=== PATIENT | female | born 2000 | race Caucasian/White ===

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

== ENCOUNTER 2021-04-17 00:12 | Observation (INO) | payer OTHER, SELFPAY ==
[2021-04-17 00:40] VITALS: BP 115/61; PULSE 100; TEMP 36.6
[2021-04-17 01:00] VITALS: BP 107/65; PULSE 101; BMI 43.1
--- NOTE | 2021-04-17 01:00 | PC.NURSE ---
Pt states she has pain right upper quadrant of abdomen that extends to low abdomen since waking 06/17. Pt denies any nausea, vomiting and diarrhea. Denies fever. Pain is intermittent and pt is not having pain on arrival. Abdomen soft.
--- NOTE | 2021-04-17 01:00 | OBADM ---
This patient, Criss Wilson, admitted to the OB room OB Post 116 for observation. Patient/family oriented to hospital policies and general routines including ID bracelet, bed and alarms, visiting hours, pain management, procedures, bathroom and other care routines, personal items, smoking policy, room service/diet, and visiting hours. Patient/Family are encouraged to report perceived risks to care and to ask questions if they do not understand what they are told or what they should do.
[2021-04-17 02:00] VITALS: BP 99/57; PULSE 88
[2021-04-17 02:52] LABS: Basophils Percent Auto 0.2 % (0.2-1.2); Eosinophils Percent Auto 0.3 % (0-4.4); Hematocrit 33.3 % (37.0-47.0); Hemoglobin 10.6 g/dL (12.0-15.0); Immature Granulocyte Absolute 0.13 K/mm3 (0.00-0.031); Immature Granulocyte Percent A 1.1 % (0-0.5); Lymphocytes Absolute Auto 2.43 K/mm3 (0.9-3.2); Lymphocytes Percent Auto 20.6 % (18.3-44.2); Mean Corpuscular HGB Conc 31.8 g/dl (32-36); Mean Corpuscular Hemoglobin 26.2 pg (26-34); Mean Corpuscular Volume 82.4 fl (80-100); Mean Platelet Volume 10.7 fl (7.4-10.4); Monocytes Absolute Auto 0.7 K/mm3 (0.1-0.6); Monocytes Percent Auto 6.3 % (2.6-8.5); Neutrophils Absolute Auto 8.5 K/mm3 (1.3-6.7); Neutrophils Percent Auto 71.5 % (45.5-73.1); Platelet Count Result 309 k/mm3 (150-375); Red Blood Count 4.04 M/mm3 (4.2-5.4); Red Cell Distribution Width 12.8 % (11.5-14.5); White Blood Count 11.8 K/mm3 (4.5-10.0)
[2021-04-17 03:04] LABS: Amylase 67 U/L (30-110); Lipase 54 U/L (23-300)
[2021-04-17 03:05] LABS: Alanine Aminotransferase 18 U/L (4-35); Albumin Level 3.6 g/dL (3.5-5.1); Alkaline Phosphatase 137 U/L (38-126); Anion Gap 8 mmol/L (8-16); Aspartate Amino Transferase 21 U/L (14-36); Bilirubin,Total < 0.1 mg/dL (0.2-1.3); Blood Urea Nitrogen 7 mg/dL (7-17); Calcium 9.1 mg/dL (8.4-10.2); Carbon Dioxide 20 mmol/L (22-30); Chloride 107 mmol/L (98-107); Estimated Glomerular Filt Rate > 60; Glucose 116 mg/dL (65-105); Potassium 3.7 mmol/L (3.4-5.0); Sodium 135 mmol/L (137-145)
[2021-04-17 03:15] LABS: Add Urine Microscopic? YES; Appearance Urine Cloudy (Clear); Bacteria Urine 1+ /hpf; Bilirubin Urine Negative (Negative); Blood Urine Negative (Negative); Color Urine Yellow (Yellow); Glucose Urine UA Negative (Negative); Ketones Urine Negative (Negative); Leukocyte Esterase Ur Negative LEU/UL (Negative); Mucus Urine Rare /lpf; Nitrate Urine Negative (Negative); Protein Urine Negative (Negative); RBC Urine 0-2 /hpf (0-2); Specific Grav Ur 1.018 (1.001-1.035); Squamous Epithelial Cell Urine Many /hpf (Few); Urobilinogen Urine Negative mg/dL (<2.0); WBC Urine 0-3 /hpf
[2021-04-17 04:05] VITALS: BP 102/60; PULSE 91
--- NOTE | 2021-04-17 04:30 | PC.NURSE ---
Labs called to Elda Harris CNM Pt has AM appointment at office. Will continue to monitor and pt will see MD/Val[employer] in am if pt would like to stay until appointment time. Pt denies any complaints at this time.
--- NOTE | 2021-04-17 07:18 | PC.NURSE ---
Elda Tesfaye CNM advised of pt admission and assessment. Orders received.
[2021-04-17 07:20] VITALS: BP 96/61; PULSE 91; TEMP 36.7
--- NOTE | 2021-04-17 08:26 | PM.IMHP ---
H&P: HPI History of Present Illness Date/Time: 04/17/21 08:26 This patient is a 21-year-old 1 30 weeks gestation who presents for right sided flank pain. She had sharp, severe flank pain on the right side that radiated down to her hip. After short. Evaluation she states that the pain resolved. Her urine was normal. Her baby had reassuring heart tones. She denies any vaginal bleeding. She denies any contractions. She reports good movement. She denies any nausea, vomiting, fever, chills. She denies any chest pain or shortness of breath. Chief Complaint: flank pain Review of Systems Constitutional: Constitutional: Reports no additional constitutional complaints, Denies fatigue, Denies headache(s), Denies lethargy and Denies weakness Eyes: Eyes: Reports no additional eye complaints, Denies blurry vision and Denies photophobia ENT: Reports as per HPI, Denies headache(s) and Denies neck pain Cardiovascular: Cardiovascular: Denies chest pain, Denies diaphoresis, Denies leg edema, Denies palpitations and Denies dyspnea Respiratory: Respiratory: Denies hemoptysis, Denies dyspnea and Denies wheezing Gastrointestinal: Gastrointestinal: Denies abdominal pain, Denies melena, Denies bloating, Denies hematochezia, Denies nausea and Denies vomiting Genitourinary: Genitourinary: Reports no additional female genitourinary complaints Musculoskeletal: Musculoskeletal: Denies joint swelling, Denies neck pain, Denies numbness and Denies stiffness Neurologic: Denies Abnormal speech present, Denies confusion, Denies headache(s), Denies numbness and Denies weakness Psychiatric: Psychiatric: Denies anxiety, Denies confusion, Denies depression, Denies homicidal ideation and Denies suicidal ideation Endocrine: Endocrine: Denies fatigue and Denies palpitations Allergic/Immunologic: Allergic/Immunologic: Denies wheezing PMFSH Past Medical History Medical History (Updated 04/17/21 @ 08:28 by Becky James MD) No pertinent past medical history Surgical History Surgical History (Updated 02/16/20 @ 00:36 by John Corcoran MD) No pertinent past surgical history Social History Social History Gender identity (if verbalized by the patient): Female Meds Home Medications and Allergies Home Medications Medication Instructions Recorded Confirmed Type PNV cmb#95-ferrous fumarate-FA 1 tablet PO DAILY 04/17/21 04/17/21 History [] ferrous sulfate 325 mg PO DAILY 04/17/21 04/17/21 History Allergies Allergy/AdvReac Type Severity Reaction Status Date / Time No Known Allergies Allergy Mild Verified 02/16/20 00:15 Vital Signs Vital Signs - 24 hr 04/17/21 00:40 04/17/21 01:00 04/17/21 02:00 Temperature 97.9 F Pulse Rate 100 101 H 88 Blood Pressure 115/61 107/65 99/57 L 04/17/21 04:05 04/17/21 07:20 Temperature Pulse Rate 91 91 Blood Pressure 102/60 96/61 L Exam Const: General: healthy appearing, comfortable and no acute distress; No confusion Orientation/consciousness: No confusion Eyes: Direct Ophthalmoscopy: No photophobia Resp: Auscultation: clear to auscultation bilaterally, no rales, no rhonchi and no wheezes Cardio: Rate: regular rate Heart sounds: no click, no murmurs and no rubs GI: Inspection: non-distended GI Palp: No abdominal tenderness Auscultation: normal bowel sounds Neuro: General: No confusion Speech: No Abnormal speech present Extrem: General: normal to inspection, no pedal edema and no calf tenderness H&P: Results Labs Labs: Short CBC 04/17/21 Range/Units 02:16 WBC 11.8 H (4.5-10.0) K/mm3 Hgb 10.6 L D (12.0-15.0) g/dL Hct 33.3 L (37.0-47.0) % Plt Count 309 (150-375) k/mm3 [facility] 04/17/21 02:16 Sodium 135 L Potassium 3.7 Chloride 107 Carbon Dioxide 20 L BUN 7 Creatinine 0.50 L Glucose 116 H Calcium 9.1 Liver Function 04/17/21 Range/Units 02:16 Total Bilirubin < 0.1 L (0.2-1.3)
== END 2021-04-17 09:24 | disposition home or self-care (01) ==
PROVIDERS: Advanced Practice Midwife; Admitting Provider Obstetrics & Gynecology; PCP Physician Assistant; Visit Provider Obstetrics & Gynecology
DX: O26.893 Other specified pregnancy related conditions, third trimester (principal); R10.9 Unspecified abdominal pain; Z3A.30 30 weeks gestation of pregnancy
CPT/HCPCS: 36415; 80053; 81001; 82150; 83690; 85025; G0378; G0379

== ENCOUNTER → 2021-04-28 09:09 | Outpatient (CLI) | payer OTHER, SELFPAY ==
[2021-04-29 15:38] LABS: SARS-CoV-2 RNA PCR Positive
== END ==
PROVIDERS: PCP Physician Assistant; Visit Provider Obstetrics & Gynecology
DX: U07.1 COVID-19 (principal)
CPT/HCPCS: C9803; U0003; U0005

== ENCOUNTER 2021-05-24 23:33 | Observation (INO) | payer OTHER, SELFPAY ==
[2021-05-24 23:50] VITALS: BP 117/70; PULSE 102
[2021-05-24 23:56] VITALS: BMI 45.3
--- NOTE | 2021-05-24 23:56 | OBADM ---
This patient, Criss Wilson, admitted to the OB room OB Post 117 for observation. Patient/family oriented to hospital policies and general routines including ID bracelet, bed and alarms, visiting hours, pain management, procedures, bathroom and other care routines, personal items, smoking policy, room service/diet, and visiting hours. Patient/Family are encouraged to report perceived risks to care and to ask questions if they do not understand what they are told or what they should do.
[2021-05-25] VITALS (9 sets, daily range): BP systolic 82–130; BP diastolic 50–88; PULSE 95–110; TEMP 36.7
[2021-05-25] MEDS: ACETAMINOPHEN 500 MG TABLET 1000 MG PO (01:23)
[2021-05-25 01:38] LABS: Basophils Percent Auto 0.2 % (0.2-1.2); Eosinophils Absolute Auto 0.1 K/mm3 (0-0.3); Eosinophils Percent Auto 0.5 % (0-4.4); Hemoglobin 9.9 g/dL (12.0-15.0); Immature Granulocyte Absolute 0.07 K/mm3 (0.00-0.031); Immature Granulocyte Percent A 0.7 % (0-0.5); Lymphocytes Absolute Auto 2.68 K/mm3 (0.9-3.2); Lymphocytes Percent Auto 25.2 % (18.3-44.2); Mean Corpuscular HGB Conc 31.9 g/dl (32-36); Mean Corpuscular Hemoglobin 25.1 pg (26-34); Mean Corpuscular Volume 78.7 fl (80-100); Mean Platelet Volume 11.3 fl (7.4-10.4); Monocytes Absolute Auto 0.8 K/mm3 (0.1-0.6); Monocytes Percent Auto 7.6 % (2.6-8.5); Neutrophils Percent Auto 65.8 % (45.5-73.1); Platelet Count Result 283 k/mm3 (150-375); Red Blood Count 3.94 M/mm3 (4.2-5.4); Red Cell Distribution Width 13.9 % (11.5-14.5); White Blood Count 10.6 K/mm3 (4.5-10.0)
[2021-05-25 01:44] LABS: Add Urine Microscopic? YES; Appearance Urine Clear (Clear); Bacteria Urine Trace /hpf; Bilirubin Urine Negative (Negative); Blood Urine Negative (Negative); Color Urine Yellow (Yellow); Glucose Urine UA Negative (Negative); Ketones Urine Negative (Negative); Leukocyte Esterase Ur Trace LEU/UL (NEGATIVE); Mucus Urine Rare /lpf; Nitrate Urine Negative (Negative); Protein Urine Negative (Negative); RBC Urine 0-2 /hpf (0-2); Specific Grav Ur 1.015 (1.001-1.035); Squamous Epithelial Cell Urine Few /hpf (Few); Urobilinogen Urine Negative mg/dL (<2.0)
[2021-05-25 01:47] LABS: Creatinine Urine 103.1 mg/dL; Total Protein Urine Random 9 mg/dL; Ur Ttl Prot Creatinine Ratio 0.09 mg/mg (0-0.20)
[2021-05-25 01:59] LABS: Alanine Aminotransferase 15 U/L (4-35); Albumin Level 3.3 g/dL (3.5-5.1); Alkaline Phosphatase 185 U/L (38-126); Anion Gap 6 mmol/L (8-16); Aspartate Amino Transferase 22 U/L (14-36); Bilirubin,Total < 0.1 mg/dL (0.2-1.3); Blood Urea Nitrogen 6 mg/dL (7-17); Calcium 8.9 mg/dL (8.4-10.2); Carbon Dioxide 20 mmol/L (22-30); Chloride 104 mmol/L (98-107); Estimated CRCL calculation 191 ml/min; Estimated Glomerular Filt Rate > 60; Glucose 106 mg/dL (65-110); Potassium 3.7 mmol/L (3.4-5.0); Sodium 130 mmol/L (137-145); Uric Acid 4.6 mg/dL (2.5-7.5)
--- NOTE | 2021-06-22 19:43 | PM.OBTRLD ---
OB - Triage/Final Diagnosis Visit Information Comments/Additional reasons for admission: I have assessed the risk for this patient, Criss Wilson, and determined that she would benefit from observation care. Evaluation Laboratory results: Laboratory Tests 05/25/21 05/25/21 05/25/21 01:29 01:29 01:30 WBC 10.6 H RBC 3.94 L Hgb 9.9 L Hct 31.0 L MCV 78.7 L MCH 25.1 L MCHC 31.9 L RDW 13.9 Plt Count 283 MPV 11.3 H Immature Gran % (Auto) 0.7 H Neut % (Auto) 65.8 Lymph % (Auto) 25.2 [place] % (Auto) 7.6 Eos % (Auto) 0.5 Baso % (Auto) 0.2 Lymph # (Auto) 2.68 [place] # (Auto) 0.8 H Eos # (Auto) 0.1 Baso # (Auto) 0.0 Abs Immat Gran (auto) 0.07 H Absolute Neuts (auto) 7.0 H Absolute Nucleated RBC 0.0 Nucleated RBC % 0.0 Sodium 130 L Potassium 3.7 Chloride 104 Carbon Dioxide 20 L Anion Gap 6 L BUN 6 L Creatinine 0.50 L Estim Creat Clear Calc 191 Estimated GFR > 60 Glucose 106 Uric Acid 4.6 Calcium 8.9 Total Bilirubin < 0.1 L AST 22 ALT 15 Alkaline Phosphatase 185 H Total Protein 7.0 Albumin 3.3 L Urine Color Yellow Urine Appearance Clear Urine pH 6.0 Ur Specific [place] 1.015 Urine Protein Negative Urine Glucose (UA) Negative Urine Ketones Negative Ur Blood (Man) Negative Urine Nitrate Negative Urine Bilirubin Negative Urine Urobilinogen Negative Ur Leukocyte Esterase Trace H Urine RBC 0-2 Urine WBC 4-6 H Ur Squamous Epith Cells Few Urine Bacteria Trace Urine Mucus Rare U Random Total Protein Urine Creatinine Protein/Creat Ratio 2 05/25/21 01:30 WBC RBC Hgb Hct MCV MCH MCHC RDW Plt Count MPV Immature Gran % (Auto) Neut % (Auto) Lymph % (Auto) [place] % (Auto) Eos % (Auto) Baso % (Auto) Lymph # (Auto) [place] # (Auto) Eos # (Auto) Baso # (Auto) Abs Immat Gran (auto) Absolute Neuts (auto) Absolute Nucleated RBC Nucleated RBC % Sodium Potassium Chloride Carbon Dioxide Anion Gap BUN Creatinine Estim Creat Clear Calc Estimated GFR Glucose Uric Acid Calcium Total Bilirubin AST ALT Alkaline Phosphatase Total Protein Albumin Urine Color Urine Appearance Urine pH Ur Specific [place] Urine Protein Urine Glucose (UA) Urine Ketones Ur Blood (Man) Urine Nitrate Urine Bilirubin Urine Urobilinogen Ur Leukocyte Esterase Urine RBC Urine WBC Ur Squamous Epith Cells Urine Bacteria Urine Mucus U Random Total Protein 9 Urine Creatinine 103.1 Protein/Creat Ratio 2 0.09 Final Diagnosis (1) Back pain: Code(s): M54.9 - Dorsalgia, unspecified Status: Acute
== END 2021-05-25 02:30 | disposition home or self-care (01) ==
PROVIDERS: Advanced Practice Midwife; Admitting Provider Obstetrics & Gynecology; PCP Physician Assistant; Visit Provider Obstetrics & Gynecology
DX: O99.891 Other specified diseases and conditions complicating pregnancy (principal); M54.9 Dorsalgia, unspecified; Z3A.35 35 weeks gestation of pregnancy
CPT/HCPCS: 36415; 80053; 81001; 82570; 84156; 84550; 85025; 87086; A9270; G0378; G0379

== ENCOUNTER 2021-06-06 00:20 | Inpatient (IN) | payer OTHER, SELFPAY ==
[2021-06-06] VITALS (183 sets, daily range): BP systolic 71–150; BP diastolic 34–117; PULSE 89–145; RESP 16–20; TEMP 36.2–36.8; O2SAT 96–100; BMI 46.5
--- NOTE | 2021-06-06 00:20 | LDADM ---
This patient, Criss Wilson, was admitted to Labor/Delivery/Recovery 109 on 06/06/21 at 00:20. Plans for labor, pain management and were discussed with patient. Patient/family oriented to hospital policies and general routines including ID bracelet, bed and alarms, visiting hours, pain management, procedures, bathroom and other care routines, personal items, smoking policy, room service/diet and guest tray routines, infant security routines, and visiting hours. Patient/Family are encouraged to report perceived risks to care and to ask questions if they do not understand what they are told or what they should do. See OBIX for further documentation.
[2021-06-06] MEDS: LACTATED RINGERS 1,000 ML 125 ML IV CONT ×2 (01:55→10:14)
[2021-06-06] MEDS: OXYTOCIN 30 UNITS/NS 500 ML 30 UNITS/500 ML BAG IV CONT (01:56)
[2021-06-06 01:59] LABS: Basophils Percent Auto 0.2 % (0.2-1.2); Eosinophils Percent Auto 0.2 % (0-4.4); Immature Granulocyte Absolute 0.06 K/mm3 (0.00-0.031); Immature Granulocyte Percent A 0.5 % (0-0.5); Lymphocytes Absolute Auto 2.32 K/mm3 (0.9-3.2); Lymphocytes Percent Auto 19.5 % (18.3-44.2); Mean Corpuscular HGB Conc 31.4 g/dl (32-36); Mean Corpuscular Hemoglobin 24.6 pg (26-34); Mean Corpuscular Volume 78.1 fl (80-100); Mean Platelet Volume 12.1 fl (7.4-10.4); Monocytes Absolute Auto 0.8 K/mm3 (0.1-0.6); Monocytes Percent Auto 6.3 % (2.6-8.5); Neutrophils Absolute Auto 8.7 K/mm3 (1.3-6.7); Neutrophils Percent Auto 73.3 % (45.5-73.1); Platelet Count Result 309 k/mm3 (150-375); Red Blood Count 4.48 M/mm3 (4.2-5.4); Red Cell Distribution Width 14.3 % (11.5-14.5); White Blood Count 11.9 K/mm3 (4.5-10.0)
[2021-06-06 02:14] LABS: Alanine Aminotransferase 13 U/L (4-35); Albumin Level 3.5 g/dL (3.5-5.1); Alkaline Phosphatase 200 U/L (38-126); Anion Gap 7 mmol/L (8-16); Aspartate Amino Transferase 30 U/L (14-36); Bilirubin,Total 0.3 mg/dL (0.2-1.3); Blood Urea Nitrogen 7 mg/dL (7-17); Calcium 9.2 mg/dL (8.4-10.2); Carbon Dioxide 20 mmol/L (22-30); Chloride 107 mmol/L (98-107); Estimated CRCL calculation 194 ml/min; Estimated Glomerular Filt Rate > 60; Glucose 120 mg/dL (65-110); Potassium 3.8 mmol/L (3.4-5.0); Sodium 134 mmol/L (137-145); Uric Acid 5.1 mg/dL (2.5-7.5)
[2021-06-06 05:15] LABS: Glucose Point of Care 84 mg/dl (65-105)
--- NOTE | 2021-06-06 08:38 | WPDANESEPP ---
Anes - Eval Pre Procedure Date/Time: 06/06/21 08:38 Pre Op Diagnosis: IOL Patient Data Age: 21 Gender: F Height: 1.63 m Weight: 123 kg Last Vital Signs Temp 36.4 C L 06/06/21 08:15 Pulse 102 H 06/06/21 08:15 Resp 18 06/06/21 08:15 BP 140/117 H 06/06/21 08:30 Allergies Allergy/AdvReac Type Severity Reaction Status Date / Time No Known Allergies Allergy Mild Verified 05/27/21 14:41 Home Medications Medication Instructions Recorded Confirmed Type PNV cmb#95-ferrous fumarate-FA 1 tablet PO DAILY 04/17/21 06/06/21 History [] ferrous sulfate 325 mg PO DAILY 04/17/21 06/06/21 History metformin 500 mg PO BID 06/06/21 06/06/21 History ibuprofen 600 mg PO Q6H PRN #30 tablet 06/07/21 Rx Laboratory Tests 06/06/21 06/06/21 06/06/21 01:36 01:36 01:36 WBC 11.9 K/mm3 H K/mm3 (4.5-10.0) RBC 4.48 M/mm3 M/mm3 (4.2-5.4) Hgb 11.0 g/dL L g/dL (12.0-15.0) Hct 35.0 % L % (37.0-47.0) MCV 78.1 fl L fl (80-100) MCH 24.6 pg L pg (26-34) MCHC 31.4 g/dl L g/dl (32-36) RDW 14.3 % % (11.5-14.5) Plt Count 309 k/mm3 k/mm3 (150-375) MPV 12.1 fl H fl (7.4-10.4) Immature Gran % (Auto) 0.5 % % (0-0.5) Neut % (Auto) 73.3 % H % (45.5-73.1) Lymph % (Auto) 19.5 % % (18.3-44.2) [place] % (Auto) 6.3 % % (2.6-8.5) Eos % (Auto) 0.2 % % (0-4.4) Baso % (Auto) 0.2 % % (0.2-1.2) Lymph # (Auto) 2.32 K/mm3 K/mm3 (0.9-3.2) [place] # (Auto) 0.8 K/mm3 H K/mm3 (0.1-0.6) Eos # (Auto) 0.0 K/mm3 K/mm3 (0-0.3) Baso # (Auto) 0.0 K/mm3 K/mm3 (0.0-0.1) Abs Immat Gran (auto) 0.06 K/mm3 H K/mm3 (0.00-0.031) Absolute Neuts (auto) 8.7 K/mm3 H K/mm3 (1.3-6.7) Absolute Nucleated RBC 0.0 K/mm3 K/mm3 (0.0-0.012) Nucleated RBC % 0.0 % % (0.0-0.2) Sodium Potassium Chloride Carbon Dioxide Anion Gap BUN Creatinine Estim Creat Clear Calc Estimated GFR Glucose POC Capillary Glucose Uric Acid Cancelled Calcium Total Bilirubin AST ALT Alkaline Phosphatase Total Protein Albumin RPR Pending Blood Type Antibody Screen 06/06/21 06/06/21 06/06/21 01:36 01:36 05:06 WBC RBC Hgb Hct MCV MCH MCHC RDW Plt Count MPV Immature Gran % (Auto) Neut % (Auto) Lymph % (Auto) [place] % (Auto) Eos % (Auto) Baso % (Auto) Lymph # (Auto) [place] # (Auto) Eos # (Auto) Baso # (Auto) Abs Immat Gran (auto) Absolute Neuts (auto) Absolute Nucleated RBC Nucleated RBC % Sodium 134 mmol/L L mmol/L (137-145) Potassium 3.8 mmol/L mmol/L (3.4-5.0) Chloride 107 mmol/L mmol/L (98-107) Carbon Dioxide 20 mmol/L L mmol/L (22-30) Anion Gap 7 mmol/L L mmol/L (8-16) BUN 7 mg/dL mg/dL (7-17) Creatinine 0.50 mg/dL L mg/dL (0.7-1.0) Estim Creat Clear Calc 194 ml/min ml/min Estimated GFR > 60 (59 - ) Glucose 120 mg/dL H mg/dL (65-110) POC Capillary Glucose 84 mg/dl mg/dl (65-105) Uric Acid 5.1 mg/dL mg/dL (2.5-7.5) Calcium 9.2 mg/dL mg/dL (8.4-10.2) Total Bilirubin 0.3 mg/dL mg/dL (0.2-1.3) AST 30 U/L U/L (14-36) ALT 13 U/L U/L (4-35) Alkaline Phosphatase 200 U/L H U/L
[2021-06-06 09:47] LABS: Rapid Plasma Reagin Non-Reactive (NonReactive)
[2021-06-06 10:12] LABS: Glucose Point of Care 79 mg/dl (65-105)
[2021-06-06 14:13] LABS: Glucose Point of Care 70 mg/dl (65-105)
--- NOTE | 2021-06-06 14:24 | WPDOBADMIT ---
Obstetrics - Admit Note Admission Note: 21 y/o G1 @ 37 weeks here for induction of labor d/t GHTN. also complicated by late diagnosis GDM. record reviewed. No pertinent additions to the history and/or any subsequent changes in the physical findings that are not consistent with the expected course of the were found. Additions to the history and/or subsequent changes in the physical findings follow. None.
[2021-06-06 16:13] LABS: Glucose Point of Care 88 mg/dl (65-105)
--- NOTE | 2021-06-06 18:59 | PM.OBPRVD ---
OB - Delivery Note Procedure Delivery date: 06/06/21 events: Gestational Diabetes and Induced HTN Intrapartal events: None Induction method: none Delivery monitor: external FHT, external uterine and internal uterine Route of delivery: Episiotomy description: None Laceration Description: None Quantitative Blood Loss (ml): 178 Anesthesia type: Epidural Narrative: Mother and baby in stable condition. Cord gasses collected and handed off to staff. Baby Date of : 06/06/21 Weeks of gestation at delivery: 37 presentation: vertex position: Right Occiput Anterior Placenta delivery description: Spontaneous
[2021-06-06] MEDS: OXYTOCIN 30 UNITS/NS 500 ML 30 UNITS/500 ML BAG 125 UNITS IV CONT (19:15)
[2021-06-06] MEDS: BENZOCAINE 20% AER SPR (*SP) 56 GM CAN 1 SPRAY (21:19)
[2021-06-06] MEDS: WITCH HAZEL 40 PADS 1 PAD (21:19)
[2021-06-07 05:24] LABS: Hematocrit 31.9 % (37.0-47.0); Hemoglobin 9.9 g/dL (12.0-15.0)
[2021-06-07 07:20] VITALS: BP 130/79; PULSE 99; RESP 16; TEMP 36.7; O2SAT 99
[2021-06-07 07:42] LABS: Glucose Point of Care 84 mg/dl (65-105)
--- NOTE | 2021-06-07 08:35 | P.PNOB_ITS ---
OB - PN: Subj Subjective Date/time seen: 06/07/21 08:35 Patient comments: no complaints baby status: doing well [place] feeding status: exclusively breast feeding OB - PN: Obj Data Labs CBC & Chem 7: 06/07/21 03:50 06/06/21 01:36 Labs: Laboratory Results - last 24 hr 06/06/21 06/06/21 06/06/21 01:36 09:54 14:08 Hgb Hct POC Capillary Glucose 79 70 RPR Non-reactive 06/06/21 06/07/21 06/07/21 16:08 03:50 07:17 Hgb 9.9 L Hct 31.9 L POC Capillary Glucose 88 84 RPR OB - PN A/P Plan day: 1 Plan: routine care Time Spent With Patient Time: Total time spent is greater than 50% in coordination of care (as documented) at patient's floor/unit and/or counseling patient: Review of Systems Review of Systems: All systems reviewed & are unremarkable except as noted in HPI and below Exam Const: General: cooperative, healthy appearing and comfortable
[2021-06-07] MEDS: MULTIVIT/MIN/PREN/FOL AC/IRON TABLET 1 TAB PO ×2 (09:00→11:03)
--- NOTE | 2021-06-07 09:04 | PM.OBDSVD ---
DS: Admitting Diagnosis Admitting Diagnosis IOL OB - DS: Summary OB Procedures : None OB Procedures Intrapartum: Spontaneous Vag Delivery OB Procedures: : None Time Spent with Patient Time attestation: Total time spent providing and/or coordinating discharge services: DS: Data Data Completed and Pending Pending studies at discharge: Pending at discharge 06/06/21 18:53 Surgical [PTH] Routine Labs on day of discharge: Labs from last 24 hours 06/07/21 06/07/21 06/06/21 07:17 03:50 16:08 Hgb 9.9 L Hct 31.9 L POC Capillary Glucose 84 88 RPR 06/06/21 06/06/21 06/06/21 14:08 09:54 01:36 Hgb Hct POC Capillary Glucose 70 79 RPR Non-reactive Discharge Plan Discharge Attending physician on discharge: Becky James Discharging Clinician: Tanisha Tesfaye Patient Disposition: Home, Self-Care Activity: pelvic rest Diet: regular Patient Instructions: Antibiotic Form Stand Alone Forms: General Discharge Information Follow-up/Referrals: Marlen Fierro CNM [Certified Nurse Supervisor [employer]] - 1 Week Discharge Medications: Continued ferrous sulfate 325 mg (65 mg iron) Tablet 325 mg PO DAILY RF: 0 PNV cmb#95-ferrous fumarate-FA [] 28 mg iron- 800 mcg Tablet 1 tablet PO DAILY RF: 0 metformin 500 mg Tablet 500 mg PO BID RF: 0 Date of admission: 06/06/21 00:20 Primary Care Provider: Shemar,Gopal Ng Admitting Provider: Becky James Attending physician on admission: Becky James Condition: Stable
[2021-06-07] MEDS: DOCUSATE SODIUM 100 MG CAPSULE PO ×2 (11:03→18:25)
[2021-06-07] MEDS: POLYSACCHARIDE IRON COMPLEX 150 MG CAPSULE PO ×2 (11:04→18:25)
[2021-06-07 12:00] VITALS: BP 124/76; PULSE 98; RESP 16; TEMP 36.7; O2SAT 98
[2021-06-07 17:30] VITALS: BP 120/77; PULSE 100; RESP 16; TEMP 36.7; O2SAT 97
--- NOTE | 2021-06-07 18:21 | PC.NURSE ---
Patient viewed the discharge video Mother & Baby Care, The First Two Weeks . Patient was given the opportunity and encouraged to ask questions. Patient verbalized understanding of information shared and has been given the mother/baby guide for home reference.
[2021-06-11 11:51] VITALS: BP 121/81; PULSE 85; RESP 20; TEMP 36.9; O2SAT 100
== END 2021-06-07 19:35 | disposition home or self-care (01) | DRG 560 ==
LOC: ANHLDR 07:27 → ANHOB2 21:56
PROVIDERS: Advanced Practice Midwife; Admitting Provider Obstetrics & Gynecology; PCP Physician Assistant; Visit Provider Obstetrics & Gynecology
DX: O24.429 Gestational diabetes mellitus in childbirth, unspecified control (principal); O13.4 Gestational [pregnancy-induced] hypertension without significant proteinuria, complicating childbirth; Z3A.37 37 weeks gestation of pregnancy; Z37.0 Single live birth
CPT/HCPCS: 36415; 80053; 82948; 84550; 85014; 85018; 85025; 86592; 86850; 86900; 86901; 88307; A9270; J2590; J2795; J7120

== ENCOUNTER 2021-08-29 23:29 | Emergency (ER) | payer OTHER, SELFPAY ==
--- NOTE | ~2021-08-29 | CT_ITS ---
EXAMINATION: CT abdomen pelvis w con INDICATION: Right upper quadrant pain and vomiting TECHNIQUE: Computed tomographic images of the abdomen and pelvis were obtained after the administrati on of 100 cc of Omnipaque 350 intravenous contrast. The dose-length product (DLP) was 1510.31 mGy-cm. Automated exposure control and iterative reconstruction technique were employed. COMPARISON: 02/16/2020 FINDINGS: The lung bases are clear. The heart size is normal. A stone is present in the nondistended gallbladder. The liver, spleen, pancreas, and adrenal glands are normal. The kidneys are unremarkable . No pathologically enlarged abdominal or pelvic lymph nodes are identified. The appendix is normal. A moderate volume of colonic stool is present. There is a fat-containing umbilical hernia. IMPRESSION: 1. Cholelithiasis without evidence of cholecystitis. Reviewed, dictated and finalized at location A. FROZEN DESSERT
[2021-08-29 23:32] VITALS: BP 128/84; PULSE 93; RESP 17; TEMP 36.6; O2SAT 98
--- NOTE | 2021-08-29 23:54 | PC.NURSE ---
Pt reports RUQ abd pain since this am. reports she thought it was menstrual cramps although lmp 2 weeks ago. worse after eating pizza this pm. no s/s of acute distress. skin pwd. resps even/nonlabored.
[2021-08-30 00:07] LABS: Basophils Absolute Auto 0.1 K/mm3 (0.0-0.1); Basophils Percent Auto 0.5 % (0.2-1.2); Eosinophils Absolute Auto 0.1 K/mm3 (0-0.3); Eosinophils Percent Auto 0.8 % (0-4.4); Hematocrit 39.9 % (37.0-47.0); Hemoglobin 12.8 g/dL (12.0-15.0); Immature Granulocyte Absolute 0.02 K/mm3 (0.00-0.031); Immature Granulocyte Percent A 0.2 % (0-0.5); Lymphocytes Absolute Auto 4.26 K/mm3 (0.9-3.2); Lymphocytes Percent Auto 40.1 % (18.3-44.2); Mean Corpuscular HGB Conc 32.1 g/dl (32-36); Mean Corpuscular Hemoglobin 25.1 pg (26-34); Mean Corpuscular Volume 78.4 fl (80-100); Mean Platelet Volume 10.6 fl (7.4-10.4); Monocytes Absolute Auto 0.8 K/mm3 (0.1-0.6); Monocytes Percent Auto 7.3 % (2.6-8.5); Neutrophils Absolute Auto 5.4 K/mm3 (1.3-6.7); Neutrophils Percent Auto 51.1 % (45.5-73.1); Platelet Count Result 369 k/mm3 (150-375); Red Blood Count 5.09 M/mm3 (4.2-5.4); Red Cell Distribution Width 14.7 % (11.5-14.5); White Blood Count 10.6 K/mm3 (4.5-10.0)
[2021-08-30 00:09] LABS: Add Urine Microscopic? NO; Appearance Urine Clear (Clear); Bilirubin Urine Negative (Negative); Blood Urine Negative (Negative); Color Urine Yellow (Yellow); Glucose Urine UA Negative (Negative); Ketones Urine Negative (Negative); Leukocyte Esterase Ur Negative LEU/UL (Negative); Nitrate Urine Negative (Negative); Protein Urine Negative (Negative); Specific Grav Ur 1.027 (1.001-1.035); Urobilinogen Urine Negative mg/dL (<2.0)
--- NOTE | 2021-08-30 00:12 | ED.ABDPAIN ---
HPI - Abdominal Pain General Chief Complaint: Abdominal Pain Stated Complaint: RUQ pain Time Seen by Provider: 08/29/21 23:38 Source: patient and RN notes reviewed Mode of arrival: ambulatory Limitations: no limitations History of Present Illness HPI narrative: This is a 21 year old female who presents for evaluation of right upper abdominal pain. She developed pain this morning around 830 am after getting off work. She describes her pain has constant and sharp. She states her pain will radiate around to her right flank. Tonight she tried to eat pizza but she developed nausea and vomiting afterwards, but her pain did not worsen. She has taken acetaminophen without improvement of her pain. She denies having similar pain in the past. She also denies history of gallstones. She denies associated cough, shortness of breath, fever, chills, dysuria or hematuria. Rates pain 06/13. MD elicited complaint: abdominal pain Onset (ago): hour(s) Pain Consistency: constant Location: RUQ Severity: severe Quality: sharp Radiation: R flank Exacerbating factors: eating Relieving factors: nothing Related Data Date of Last Menstrual Period: 08/28/21 Patient : No Home Medications Medication Instructions Recorded Confirmed PNV cmb#95-ferrous fumarate-FA 1 tablet PO DAILY 04/17/21 06/06/21 [] Allergies Allergy/AdvReac Type Severity Reaction Status Date / Time No Known Allergies Allergy Mild Verified 08/29/21 23:35 Review of Systems Review of Systems: All systems reviewed & are unremarkable except as noted in HPI and below PMFSH Past Medical History Medical History GDM (gestational diabetes mellitus), class A1 GDM (gestational diabetes mellitus), class A1 No pertinent past medical history Surgical History Surgical History No pertinent past surgical history Family History Family History Mother Diabetes mellitus Sibling Asthma Grandparent Diabetes mellitus Social History Social History Smoking status: Never smoker Substance use: never Gender identity (if verbalized by the patient): Female Spiritual care concerns: No Exam Const: General: no acute distress and alert Nutritional Appearance: obese Orientation/consciousness: patient oriented x3 Eyes: EOM: EOMs intact bilaterally Resp: Effort & Inspection: normal respiratory effort and no retractions Auscultation: clear to auscultation bilaterally Cardio: Rate: regular rate Rhythm: regular rhythm Heart sounds: no murmurs GI: GI Palp: Yes Soft to palpation, Yes Tenderness to palpation present (GI) (RUQ), No Guarding due to palpation present (GI) and No Rigid due to palpation Auscultation: normal bowel sounds : General: Yes no CVA tenderness Back/Spine/Pelvis: Back: no CVA tenderness Skin: General skin exam: normal color Rashes: no rashes Neuro: General: patient oriented x3, moves all extremities and CN's II-XI intact bilaterally Psych: Mental Status: mental status grossly normal Affect: normal affect Course Reevaluation(s) Reevaluation #1: Patient states she feels better. I discussed labs and CT. I also discussed she will need to have low fat diet and follow up with PCP if pain continues. Date: 08/30/21 Time: 02:47 Vital Signs Vital signs: Vital Signs Temperature 97.8 F 08/29/21 23:32 Pulse Rate 93 08/29/21 23:32 Respiratory Rate 17 08/29/21 23:32 Blood Pressure 128/84 08/29/21 23:32 Pulse Oximetry 98 08/29/21 23:32 Temperature 97.8 F 08/29/21 23:32 Pulse Rate 74 08/30/21 01:04 Respiratory Rate 20 08/30/21 01:04 Blood Pressure 100/59 L 08/30/21 01:04 Pulse Oximetry 100 08/30/21 01:04 MDM - Abdominal Pain Lab Data Attestation: I reviewed the radha
[2021-08-30] MEDS: KETOROLAC 30 MG/ML VIAL (*BKC) IV PUSH (00:20)
[2021-08-30] MEDS: ONDANSETRON INJ 4 MG/2 ML VIAL IV PUSH (00:20)
[2021-08-30 00:24] LABS: Alanine Aminotransferase 24 U/L (4-35); Albumin Level 4.6 g/dL (3.5-5.1); Alkaline Phosphatase 129 U/L (38-126); Anion Gap 8 mmol/L (8-16); Aspartate Amino Transferase 30 U/L (14-36); Bilirubin,Total 0.3 mg/dL (0.2-1.3); Blood Urea Nitrogen 14 mg/dL (7-17); Calcium 9.8 mg/dL (8.4-10.2); Carbon Dioxide 25 mmol/L (22-30); Chloride 104 mmol/L (98-107); Estimated Glomerular Filt Rate > 60; Glucose 142 mg/dL (65-110); Lipase 92 U/L (23-300); Potassium 3.8 mmol/L (3.4-5.0); Sodium 137 mmol/L (137-145)
[2021-08-30 01:04] VITALS: BP 100/59; PULSE 74; RESP 20; O2SAT 100
== END 2021-08-30 03:01 | disposition home or self-care (01) ==
PROVIDERS: Emergency Provider General Practice; PCP Physician Assistant
DX: K80.70 Calculus of gallbladder and bile duct without cholecystitis without obstruction (principal)
CPT/HCPCS: 36415; 74177; 80053; 81003; 81025; 83690; 85025; 96374; 96375; 99284; J1885; J2405; Q9967

== ENCOUNTER 2021-09-13 22:41 | Emergency (ER) | payer OTHER, SELFPAY ==
[2021-09-13 22:43] VITALS: BP 118/78; PULSE 82; RESP 16; TEMP 36.9; O2SAT 100
[2021-09-14] MEDS: KETOROLAC 30 MG/ML VIAL (*BKC) IV PUSH (00:03)
[2021-09-14] MEDS: ONDANSETRON INJ 4 MG/2 ML VIAL IV PUSH (00:03)
[2021-09-14] MEDS: MORPHINE SULFATE (*CRX) 4 MG/ML INJ IV PUSH (00:03)
[2021-09-14] MEDS: SODIUM CHLORIDE 0.9% IV 1,000 ML 999 ML IV CONT (00:03)
[2021-09-14 00:10] LABS: Add Urine Microscopic? NO; Appearance Urine Clear (Clear); Bilirubin Urine Negative (Negative); Blood Urine Negative (Negative); Color Urine Yellow (Yellow); Glucose Urine UA Negative (Negative); Ketones Urine Negative (Negative); Leukocyte Esterase Ur Negative LEU/UL (Negative); Nitrate Urine Negative (Negative); Protein Urine Negative (Negative); Specific Grav Ur 1.023 (1.001-1.035); Urobilinogen Urine Negative mg/dL (<2.0)
[2021-09-14 00:29] LABS: Basophils Percent Auto 0.4 % (0.2-1.2); Eosinophils Absolute Auto 0.1 K/mm3 (0-0.3); Eosinophils Percent Auto 0.8 % (0-4.4); Hematocrit 37.2 % (37.0-47.0); Immature Granulocyte Absolute 0.02 K/mm3 (0.00-0.031); Immature Granulocyte Percent A 0.2 % (0-0.5); Lymphocytes Absolute Auto 3.72 K/mm3 (0.9-3.2); Lymphocytes Percent Auto 37.7 % (18.3-44.2); Mean Corpuscular HGB Conc 32.3 g/dl (32-36); Mean Corpuscular Hemoglobin 25.3 pg (26-34); Mean Corpuscular Volume 78.5 fl (80-100); Mean Platelet Volume 10.7 fl (7.4-10.4); Monocytes Absolute Auto 0.7 K/mm3 (0.1-0.6); Monocytes Percent Auto 7.5 % (2.6-8.5); Neutrophils Absolute Auto 5.3 K/mm3 (1.3-6.7); Neutrophils Percent Auto 53.4 % (45.5-73.1); Platelet Count Result 340 k/mm3 (150-375); Red Blood Count 4.74 M/mm3 (4.2-5.4); Red Cell Distribution Width 14.5 % (11.5-14.5); White Blood Count 9.9 K/mm3 (4.5-10.0)
[2021-09-14 00:30] LABS: Lactic Acid Reflex 0.9 mmol/L (0.7-2.1)
[2021-09-14 00:31] LABS: Alanine Aminotransferase 37 U/L (4-35); Albumin Level 4.3 g/dL (3.5-5.1); Alkaline Phosphatase 112 U/L (38-126); Anion Gap 8 mmol/L (8-16); Aspartate Amino Transferase 30 U/L (14-36); Bilirubin,Total 0.3 mg/dL (0.2-1.3); Blood Urea Nitrogen 9 mg/dL (7-17); Calcium 9.4 mg/dL (8.4-10.2); Carbon Dioxide 26 mmol/L (22-30); Chloride 102 mmol/L (98-107); Estimated CRCL calculation 154 ml/min; Estimated Glomerular Filt Rate > 60; Glucose 120 mg/dL (65-110); Lipase 75 U/L (23-300); Potassium 3.9 mmol/L (3.4-5.0); Sodium 136 mmol/L (137-145)
--- NOTE | 2021-09-14 01:28 | ED.GENADULT ---
HPI - General Adult General Chief complaint: Abdominal Pain Stated complaint: RUQ pain, back pain Time Seen by Provider: 09/13/21 23:46 History of Present Illness HPI narrative: Patient 21-year-old female presents the emergency department with chief complaint of right upper quadrant pain. Patient reports she was seen in the emergency department recently diagnosed with biliary colic and was referred to her primary care physician for follow-up. Patient reports that she has been compliant with a low-fat diet and is supposed to follow-up with her primary care physician later this month patient has not been referred to a surgeon the patient denies fever reports no nausea no vomiting. The patient denies jaundice noticed Related Data Home Medications Medication Instructions Recorded Confirmed PNV cmb#95-ferrous fumarate-FA 1 tablet PO DAILY 04/17/21 06/06/21 [] Allergies Allergy/AdvReac Type Severity Reaction Status Date / Time No Known Allergies Allergy Mild Verified 09/13/21 22:46 Review of Systems Review of Systems: A 10 system review of systems was completed on the patient and is negative except for what is stated in the HPI. Nursing and ancillary documentation was reviewed. [facility] Past Medical History Medical History GDM (gestational diabetes mellitus), class A1 GDM (gestational diabetes mellitus), class A1 No pertinent past medical history Surgical History Surgical History No pertinent past surgical history Family History Family History Mother Diabetes mellitus Sibling Asthma Grandparent Diabetes mellitus Social History Social History Smoking status: Never smoker Substance use: never Gender identity (if verbalized by the patient): Female Spiritual care concerns: No Exam Narrative: GENERAL: Well-appearing, well-nourished, and in no acute distress. HEAD: Normocephalic, atraumatic. EYES: PERRLA and EOMI. ENT: Nares clear, no rhinorrhea or epistaxis. Mucous membranes moist. NECK: Supple. CHEST: Clear to auscultation. No respiratory distress. HEART: Regular rate and rhythm. No murmur heard. Normal peripheral pulses. ABDOMEN: Soft, tenderness to palpation in the right upper quadrant, nondistended, normal active bowel sounds. EXTREMITIES: Normal range of motion. No edema. SKIN: Warm, dry, no rash. NEURO: No focal deficits. Alert and oriented x3. PSYCH: Normal mood and affect. Course Course Emergency Course: Laboratory studies did not show an elevated bilirubin and showed a normal white blood cell count the patient's pain was able to be controlled. The patient be discharged home to follow-up with surgery as an outpatient. Vital Signs Vital signs: Vital Signs Temperature 36.9 C 09/13/21 22:43 Pulse Rate 82 09/13/21 22:43 Respiratory Rate 16 09/13/21 22:43 Blood Pressure 118/78 09/13/21 22:43 Pulse Oximetry 100 09/13/21 22:43 Temperature 36.9 C 09/13/21 22:43 Pulse Rate 82 09/13/21 22:43 Respiratory Rate 16 09/13/21 22:43 Blood Pressure 118/78 09/13/21 22:43 Pulse Oximetry 100 09/13/21 22:43 Medical Decision Making Vital Signs Vital Signs: Vital Signs Temperature 36.9 C 09/13/21 22:43 Pulse Rate 82 09/13/21 22:43 Respiratory Rate 16 09/13/21 22:43 Blood Pressure 118/78 09/13/21 22:43 Pulse Oximetry 100 09/13/21 22:43 Temperature 36.9 C 09/13/21 22:43 Pulse Rate 82 09/13/21 22:43 Respiratory Rate 16 09/13/21 22:43 Blood Pressure 118/78 09/13/21 22:43 Pulse Oximetry 100 09/13/21 22:43 Lab Data Result diagrams: 09/14/21 00:00 09/14/21 00:00 Labs: Lab Results 09/14/21 09/14/21 09/14/21 Range/Units 00:00 00:00 00:00
[2021-09-14 01:43] VITALS: BP 94/49; PULSE 83; RESP 17; O2SAT 100
== END 2021-09-14 01:46 | disposition home or self-care (01) ==
PROVIDERS: Emergency Provider Emergency Medicine; PCP Physician Assistant
DX: K80.50 Calculus of bile duct without cholangitis or cholecystitis without obstruction (principal)
CPT/HCPCS: 36415; 80053; 81003; 81025; 83605; 83690; 85025; 96361; 96374; 96375; 99284; J1885; J2270; J2405; J7030

== ENCOUNTER 2021-10-20 20:25 | Emergency (ER) | payer BC, MEDICAID, SELFPAY ==
[2021-10-20 21:03] VITALS: BP 135/86; PULSE 75; RESP 16; TEMP 36.4; O2SAT 100
[2021-10-20 22:56] VITALS: BP 127/91; PULSE 100; RESP 16; O2SAT 100
--- NOTE | 2021-10-21 00:25 | PC.NURSE ---
Pt walked out of ED prior to seeing provider. Ambulatory with steady gait, no sign of distress.
== END 2021-10-21 00:31 | disposition left against medical advice (07) ==
LOC: ANHED 10-21 00:28
PROVIDERS: PCP Physician Assistant
DX: R10.9 Unspecified abdominal pain (principal)
CPT/HCPCS: 99199

== ENCOUNTER → 2021-10-31 02:36 | Outpatient (CLI) | payer BC, MEDICAID, SELFPAY ==
[2021-10-31 18:24] LABS: SARS-CoV-2 RNA PCR Positive
== END ==
PROVIDERS: PCP Physician Assistant; Visit Provider Surgery
DX: U07.1 COVID-19 (principal)
CPT/HCPCS: C9803; U0003; U0005

== ENCOUNTER 2021-10-31 09:31 | Outpatient (CLI) | payer BC, MEDICAID, SELFPAY ==
[2021-10-31 10:04] LABS: Basophils Percent Auto 0.4 % (0.2-1.2); Eosinophils Absolute Auto 0.1 K/mm3 (0-0.3); Eosinophils Percent Auto 1.8 % (0-4.4); Hematocrit 43.2 % (37.0-47.0); Hemoglobin 13.9 g/dL (12.0-15.0); Immature Granulocyte Absolute 0.02 K/mm3 (0.00-0.031); Immature Granulocyte Percent A 0.3 % (0-0.5); Lymphocytes Absolute Auto 3.37 K/mm3 (0.9-3.2); Lymphocytes Percent Auto 44.1 % (18.3-44.2); Mean Corpuscular HGB Conc 32.2 g/dl (32-36); Mean Corpuscular Hemoglobin 25.7 pg (26-34); Mean Corpuscular Volume 79.9 fl (80-100); Mean Platelet Volume 10.6 fl (7.4-10.4); Monocytes Absolute Auto 0.6 K/mm3 (0.1-0.6); Monocytes Percent Auto 8.4 % (2.6-8.5); Neutrophils Absolute Auto 3.4 K/mm3 (1.3-6.7); Platelet Count Result 376 k/mm3 (150-375); Red Blood Count 5.41 M/mm3 (4.2-5.4); Red Cell Distribution Width 14.6 % (11.5-14.5); White Blood Count 7.6 K/mm3 (4.5-10.0)
[2021-10-31 10:15] LABS: Alanine Aminotransferase 120 U/L (4-35); Albumin Level 4.5 g/dL (3.5-5.1); Alkaline Phosphatase 149 U/L (38-126); Amylase 88 U/L (30-110); Anion Gap 9 mmol/L (8-16); Aspartate Amino Transferase 58 U/L (14-36); Bilirubin,Total 0.8 mg/dL (0.2-1.3); Blood Urea Nitrogen 8 mg/dL (7-17); Calcium 9.4 mg/dL (8.4-10.2); Carbon Dioxide 25 mmol/L (22-30); Chloride 104 mmol/L (98-107); Estimated Glomerular Filt Rate > 60; Glucose 125 mg/dL (65-110); Lipase 102 U/L (23-300); Sodium 138 mmol/L (137-145)
== END 2021-10-31 09:32 | disposition home or self-care (01) ==
LOC: ANHSURGERY 09:37
PROVIDERS: PCP Physician Assistant; Visit Provider Surgery
DX: K80.10 Calculus of gallbladder with chronic cholecystitis without obstruction (principal); K42.9 Umbilical hernia without obstruction or gangrene; Z01.818 Encounter for other preprocedural examination
CPT/HCPCS: 36415; 80053; 82150; 83690; 85025

== ENCOUNTER 2021-12-03 00:01 | Day surgery (SDC) | payer BC, MEDICAID, SELFPAY ==
[2021-10-28 14:20] VITALS: BMI 41.1
--- NOTE | 2021-10-28 14:34 | PC.NURSE ---
Addendum entered by Casi Jimenez RN 11/28/21 11:35: PT TO ARRIVE AT 1000 ON 12/03/21 FOR SURGERY AT 1200. NO REPEAT COVID TEST NEEDED. Original Note: Report to the Outpatient Waiting Room, entrance under the green pavilion located off [facility], at time 6:00 on date 11/03/21. OR Time: 7:30. - You will be asked a series of questions to screen for COVID 19 for your protection. - A mask is required within the hospital. - No visitors are allowed at this time. Preoperative COVID Testing Requirements: COVID TEST 10/31 AT 9:30 No COVID Test needed if: (proof is required; if not received patient will have Rapid Test prior to entry) - Patient has received COVID Vaccine at least 14 days prior to procedure date or - Patient has positive COVID test result within last 90 days of surgery date. COVID Test needed if above criteria is not met If not COVID vaccinated a COVID test must be conducted within 72 hours of surgery and patient is asked to isolate self from time of testing until procedure. You will go to the [facility] for your COVID testing. The [facility] is located at the corner of [address] [facility]. You will only be called if COVID results are positive and your surgeon may reschedule your elective surgery date. Patients may have clear liquids (water, carbonated beverages, clear teas, apple juice) until 3 hours prior to surgery (4:30) with a maximum of 20 ounces. - No food from midnight until time of surgery Take the following medications with a SIP of water the morning of surgery: NONE Medications to discontinue per physician: VITAMINS Date to take last dose: 10/30/21 Please no make-up, nail estonian, hairspray, perfume, deodorant, or body powder the day of surgery. No jewelry (including any body piercings) or valuables the day of surgery, leave them at home. Please take a shower or bath the night before, or the morning of, surgery with an antibacterial soap. Wear comfortable, loose fitting clothing. HIBICLENS SHOWER - Jewelry must be removed prior to entering the operating room. Rings and piercings that are not removed may be cut off. - The hospital will not accept responsibility for valuables. - Please leave all valuables, including medications, at home the day of surgery. If you are going home after surgery, a licensed clamp truck driver must drive you home. - NO public transportation without another adult. - We recommend that an adult stay with you for 24 hours following discharge. - We also recommend that you do not drive, make important decision, drink alcoholic beverages, or take any drugs that were not prescribed by your health care provider for at least 24 hours after your discharge time. Follow any additional instructions given to you from your surgeon. Telephone instructions given to BERNARDA MORALES and asked if any additional questions and then verbalized understanding. Patient advised to call surgeon office or pre surgery nurse liaison [phone] if any additional questions.
--- NOTE | 2021-11-01 10:29 | SUR.PREOP ---
Dr Jade contact and informed Covid test postive from 10/31/21 states case will be delayed until later date, patient contacted message left to call this RN back and then will be given instructions to call office for new date of procedure.
--- NOTE | 2021-11-28 11:35 | PC.NURSE ---
Pt states no changes in medications since initial interview. Medical history updated. New instructions reviewed with pt. Pt denies further questions at this time.
[2021-12-03] VITALS (8 sets, daily range): BP systolic 102–118; BP diastolic 51–77; PULSE 71–95; RESP 14–20; TEMP 36.4–36.6; O2SAT 96–100
--- NOTE | 2021-12-03 07:51 | PM.HPGS ---
History of Present Illness History of Present Illness Consent: Risks, benefits, and alternatives of a laparoscopic cholecystectomy with possible intraoperative cholangiogram, possible open cholecystectomy have been discussed and questions answered. Patient agrees to proceed with procedure. Chief complaint: Chr Cholecystitis wth Cholelithiasis,Sm Umb Hernia Narrative: Criss Wilson is a 21 year old female who presents for evaluation of gallbladder attacks. She presented to [facility] ER on 08/29/21 and 09/13/[address] with [address] abd/pel w/ contrast was done at the first ER visit which showed cholelithiasis without evidence of cholecystitis and small umbilical hernia. She has been trying to maintain a low fat diet since her ER visits. She states she has not experienced abdominal pain for about 2 weeks now. She denies current fevers, nausea, and vomiting. She does not notice a bulge or pain at her umbilicus. Review of Systems Constitutional: Constitutional: Reports no additional constitutional complaints, Reports fatigue and Denies malaise Eyes: Eyes: Denies change in vision and Denies loss of vision ENT: Reports Normal hearing present, Denies change in voice, Denies dizziness, Denies hoarseness and Denies sore throat Cardiovascular: Cardiovascular: Denies chest pain, Denies leg edema and Denies dyspnea Respiratory: Respiratory: Denies cough, Denies dyspnea and Denies wheezing Gastrointestinal: Gastrointestinal: Denies hematochezia, Denies change in bowel habits and Denies heartburn Genitourinary: Genitourinary: Denies urinary frequency and Denies urinary incontinence Neurologic: Reports Normal hearing present, Denies confusion, Denies dizziness, Denies loss of vision, Denies memory loss and Denies seizure-like activity Psychiatric: Psychiatric: Denies confusion, Denies depression and Denies memory loss Endocrine: Endocrine: Denies cold intolerance and Reports fatigue Hematologic/Lymphatic: Hematologic/Lymphatic: Denies easy bleeding and Denies easy bruising Allergic/Immunologic: Allergic/Immunologic: Denies wheezing PMFSH Surgical History Surgical History No pertinent past surgical history Family History Family History Mother Diabetes mellitus Sibling Asthma Grandparent Diabetes mellitus Social History Social History Smoking status: Never smoker Alcohol intake: never Substance use: never Substance use type: does not use Living arrangements: with family Gender identity (if verbalized by the patient): Female Spiritual care concerns: No Meds Home Medications and Allergies Home Medications Medication Instructions Recorded Confirmed Type PNV cmb#95-ferrous fumarate-FA 1 tablet PO DAILY 04/17/21 12/03/21 History [] Allergies Allergy/AdvReac Type Severity Reaction Status Date / Time No Known Allergies Allergy Mild Verified 12/03/21 10:43 Exam Const: General: cooperative, no acute distress, well developed, alert and awake Nutritional Appearance: well nourished Orientation/consciousness: oriented to person, oriented to place, oriented to time and patient oriented x3 HENMT: Head: normal to inspection, normocephalic and atraumatic Ears: hearing grossly normal bilaterally and external ears normal General nose exam: Normal external nose present and Normal nares present Face and sinus: normal facial exam Mouth: Yes Normal oral and palatal mucosa present, Yes lip normal and Yes moist mucous membranes Eyes: General: appearance normal, both eyes and all related structures Sclera: sclerae normal Pupils: Equal, round and reactive pupils present and Pupil accommodation reflex normal EOM: EOMs intact bilaterally Neck: Neck: full ROM, no lymphadenopathy, trachea midline and supple Lymphatic: no lymphadenopa
[2021-12-03] MEDS: ACETAMINOPHEN 500 MG TABLET 1000 MG PO (10:46)
[2021-12-03] MEDS: LACTATED RINGERS 1,000 ML 30 ML IV CONT ×2 (10:50→13:55)
[2021-12-03] MEDS: KETOROLAC 15 MG/ML VIAL (*BKC) IV PUSH (10:55)
--- NOTE | 2021-12-03 11:20 | P.PNAN_ITS ---
Anes - Initial Pre Proc Eval Procedure: Operation Date: 12/03/21 12:00 Proposed Procedures p Laparoscopic Cholecystectomy with Possible Intraoperative Cholangiogram, Possible Open - Russ Jade MD s Umbilical Hernia Repair with Sutures - Russ Jade MD Date/Time: 12/03/21 11:20 Surgeon: Russ Jade MD Pre Op Diagnosis: Chr Cholecystitis wth Cholelithiasis,Sm Umb Hernia Patient Data Age: 21 Gender: F Height: 1.63 m Weight: 108.86 kg Allergies Allergy/AdvReac Type Severity Reaction Status Date / Time No Known Allergies Allergy Mild Verified 12/03/21 10:43 Home Medications Medication Instructions Recorded Confirmed Type PNV cmb#95-ferrous fumarate-FA 1 tablet PO DAILY 04/17/21 12/03/21 History [] Patient hx anesthesia problems: none Family hx anesthesia problems: none Results Review: All pre-operative results and documents have been reviewed as part of the pre-operative evaluation. [facility] Surgical History Surgical History No pertinent past surgical history Family History Family History Mother Diabetes mellitus Sibling Asthma Grandparent Diabetes mellitus Social History Social History Smoking status: Never smoker Alcohol intake: never Substance use: never Substance use type: does not use Living arrangements: with family Gender identity (if verbalized by the patient): Female Spiritual care concerns: No Anes - Eval Final PreProcedure Day of Procedure 12/03/21 11:20 Patient weight: morbidly obese Heart: regular rate and rhythm Lungs: clear to auscultation Airway: Mallampati scale class II Neurological: alert and oriented Last oral intake: >/= 8 hours ASA classification: III Emergent: no Anesthetic plan: proceed Anesthesia type and monitoring: general ETT and standard monitoring Results Review: All pre-operative results and documents have been reviewed as part of the pre-operative evaluation. Informed Consent: The patient's anesthetic plan and its attendant risks and benefits were discussed with the patient/family/POA. Questions were solicited and answers provided to the satisfaction of the patient/family/POA.
--- NOTE | 2021-12-03 11:49 | WPDHPUPDATE1 ---
History and Physical Update Update Date/Time: 12/03/21 11:49 History and Physical has been reviewed, including an updated exam of the patient. There are NO changes in the patient's condition. Risks, benefits, and alternatives have been discussed and questions answered. Patient agrees to proceed with procedure.
[2021-12-03] MEDS: ceFAZolin 2 GM/D5W 50 ML 2 GM/50 ML BAG IVPB (11:58)
[2021-12-03] MEDS: BUPIVACAINE/EPINEPHRINE 0.25% 50 ML VIAL 30 ML INFILTRATE (13:25)
--- NOTE | 2021-12-03 13:34 | W.PM.PROC2 ---
Procedure Note - Detailed Date of Procedure 12/03/21 Pre-op Diagnosis 1. Chronic Cholecystitis with Cholelithiasis. 2. Small Umbilical Hernia. Post-op Diagnosis same Procedure Performed Laproscopic Cholecystectomy Surgeon Russ Jade MD Reheater [ ] RN.OR human services assistant Anesthesia general Indications Patient has been having intermittent upper abdominal pain and nausea. Most recent episode was approximately 2-3 weeks ago. She has had a CT scan showing at least 1 gallstone in the gallbladder. Therefore, because her continued symptoms the risks, benefits, possible complications of a laparoscopic cholecystectomy possible intraoperative cholangiogram, possible open cholecystectomy were discussed and she wished to proceed. Findings A fairly normal-looking gallbladder but with adhesions covering its lower 3rd. Upon removal near the neck of the gallbladder there appeared to be a palpable 0.8 cm stone. Description of Procedure Patient was seen preoperatively in the holding area and risks, benefits and alternatives confirmed. Patient was taken to the operating room and general anesthesia was induced. A time out was then preformed with the surgery team confirming patient and site of surgery. The abdomen was prepped and draped in the usual sterile fashion. Incision was made just below the umbilicus with an 11 blade knife. This was made vertically starting at the very base of the umbilicus and extending inferiorly. Upon making the incision it in some dissection did appear that the patient had a weakness directly underneath the umbilicus suspected to be about 5-8 mm in diameter. I placed 2 stay sutures of O- Vicryl on either side of the mid-line fascia beneath the umbilicus. This was slightly inferior to the small umbilical hernia such that the incision into the peritoneum included the hernia sac. After carefully dilating the defect in the peritoneum with a peon I was able to insert the port. I was then able to slide in the Yung cannula through the fascial defect into the peritoneum. First under low flow and then under high flow the abdomen was insufflated with carbon dioxide never exceeding a pressure of 14. Three 5 mm trocars were then introduced under direct vision. The following trocars were introduced under direct vision: a 5 mm in the epigastrium and two 5 mm trocars along the right costal margin laterally in the subcostal area. Careful inspection of the abdomen revealed no hernias in the inguinal areas on either side. Normal appearing omentum and loops of small bowel were also seen. There were significant omental adhesions to the lower third of the underside of the gallbladder. These were taken down with blunt and sharp dissection using some Bovie cautery for hemostasis. We were able to dissect this completely away from the neck of the gallbladder. I then carefully used the L-shaped cautery and the [place] dissector to dissect out the triangle of Calot. I then was able to dissect out both the cystic duct and cystic artery and identify a window of safety. The gall bladder was grasped and the cystic duct and artery were dissected free and clipped with an 5 mm endo-clip caser in. The cystic duct and artery were clipped with use of 2 clips on the patient's side 1 on the gallbladder side utilizing a 5 mm endoclip-caser in. The cystic duct was then transected. The cystic artery was also transected at this point. The gall bladder was removed using electrocautery and then removed from the abdomen using a large 10 mm grasper via the umbilical incision. The trocars were removed visualizing hemostasis and the remaining gas evacuated. The large trocar site at the umbilicus was closed with use of the 2 stay sutures of 0 Vicryl mentioned above and also a figure of 8 O-Vicryl suture. The 2 stay sutures mentioned above on either side of the fascia were also tied together to help approximate this midline fascia. Further local anesthetic was placed
[2021-12-03] MEDS: SCOPOLAMINE 1.5 MG PATCH TRANSDERM (14:04)
[2021-12-03] MEDS: oxyCODONE HCL (*CRX) 5 MG TAB IR PO (15:25)
== END 2021-12-03 15:47 | disposition home or self-care (01) ==
PROVIDERS: PCP Physician Assistant; Visit Provider Surgery
PROC: 0FT44ZZ Resection of Gallbladder, Percutaneous Endoscopic Approach (ICD-10-PCS; CPT 47562; principal; 2021-12-03 12:00)
PROC: (CPT 47562; 2021-12-03 12:00)
DX: K80.10 Calculus of gallbladder with chronic cholecystitis without obstruction (principal); K42.9 Umbilical hernia without obstruction or gangrene; E66.01 Morbid (severe) obesity due to excess calories; Z68.41 Body mass index [BMI] 40.0-44.9, adult
CPT/HCPCS: 47562; 88304; A9270; J0690; J1100; J1170; J1885; J2001; J2250; J2405; J2704; J3010; J7030; J7120

== ENCOUNTER 2022-10-20 19:46 | Emergency (ER) | payer BC, MEDICAID, SELFPAY ==
[2022-10-20 19:55] VITALS: BP 99/74; RESP 20; TEMP 36.3; O2SAT 98
--- NOTE | 2022-10-20 19:58 | ED.SYNCOPE ---
HPI - Syncope General Chief Complaint: Syncope Stated Complaint: i've passed out twice Time Seen by Provider: 10/20/22 19:58 History of Present Illness HPI narrative: 22-year-old female no medical problems presents emergency room for evaluation of 2 syncopal episodes tonight while eating dinner. Patient denies any nausea vomiting or coughing. States that she did donate plasma earlier today. Reports donating plasma twice a week for several months. Denies any chest pain or shortness of breath difficulty breathing. Denies any injury sustained from her syncopal notes. Related Data Home Medications Medication Instructions Recorded Confirmed vit no.95-ferrous 1 tablet PO DAILY 04/17/21 12/03/21 fumarate 28 mg-folic acid 800 mcg tablet () Allergies Allergy/AdvReac Type Severity Reaction Status Date / Time No Known Allergies Allergy Mild Verified 10/20/22 20:31 Review of Systems Review of Systems: CONSTITUTIONAL: Denies fever, chills, or sweats. EYES: Denies visual changes, redness, or discharge. ENT: Denies rhinorrhea, congestion, sore throat, or otalgia. CARDIOVASCULAR: Denies chest pain, palpitations, or edema. RESPIRATORY: Denies cough or dyspnea. GASTROINTESTINAL: Denies abdominal pain, nausea, vomiting, or diarrhea. GENITOURINARY: Denies dysuria or hematuria. SKIN: Denies rash or itching. MUSCULOSKELETAL: Denies back pain, joint pain, or myalgia. NEUROLOGIC: Denies headache, numbness, dizziness, or weakness. PSYCHIATRIC: Denies anxiety or depression. PMFSH Surgical History Surgical History No pertinent past surgical history Family History Family History Mother Diabetes mellitus Sibling Asthma Grandparent Diabetes mellitus Social History Social History Smoking status: Never smoker Alcohol intake: never Substance use: never Substance use type: does not use Gender identity (if verbalized by the patient): Female Spiritual care concerns: No Exam Narrative: GENERAL: Well-appearing, well-nourished, no physical limitations, and in no acute distress. HEAD: Normocephalic, atraumatic. EYES: Conjunctivae normal, PERRLA and EOMI. CHEST: Clear to auscultation. No respiratory distress. No wheezes rales or rhonchi. HEART: Regular rate and rhythm. No murmur heard. Normal peripheral pulses. ABDOMEN: Soft, nontender, nondistended, normal active bowel sounds. EXTREMITIES: Normal range of motion. No edema. No clubbing or cyanosis SKIN: Warm, dry, no rash. No noted wounds NEURO: No focal deficits. Alert and oriented x3. MAEW. CN's II-XI intact bilaterally, normal gait PSYCH: Cooperative. Normal mood and affect. Course Vital Signs Vital signs: Vital Signs Temperature 36.3 C L 10/20/22 19:55 Respiratory Rate 20 10/20/22 19:55 Blood Pressure 99/74 L 10/20/22 19:55 Pulse Oximetry 98 10/20/22 19:55 Oxygen Delivery Room Air 10/20/22 19:55 Temperature 36.3 C L 10/20/22 19:55 Pulse Rate 98 10/20/22 20:32 Respiratory Rate 20 10/20/22 19:55 Blood Pressure 100/67 10/20/22 20:32 Pulse Oximetry 98 10/20/22 19:55 Oxygen Delivery Room Air 10/20/22 19:55 MDM - Syncope MDM Narrative Medical decision making narrative: 22-year-old female presented to the emergency room after having 2 syncopal episodes following plasma donation. States that she has been donating plasma for several months and has not experienced the symptoms. Her blood pressure was slightly low at 100/67 but not tachycardic. Lab work was within normal limits. Patient likely had vasovagal episode due to fluid shifts from the plasma donation or he may be given a slight transient dehydration. Lab Data 10/20/22 20:04 10/20/22 20:04 Labs: Lab Results 10/20/22 10/20/22 10/20/22 Range/Units
[2022-10-20 20:14] LABS: Basophils Absolute Auto 0.1 K/mm3 (0.0-0.1); Basophils Percent Auto 0.4 % (0.2-1.2); Eosinophils Absolute Auto 0.1 K/mm3 (0-0.3); Eosinophils Percent Auto 0.6 % (0-4.4); Hematocrit 43.5 % (37.0-47.0); Immature Granulocyte Absolute 0.05 K/mm3 (0.00-0.031); Immature Granulocyte Percent A 0.4 % (0-0.5); Lymphocytes Absolute Auto 3.95 K/mm3 (0.9-3.2); Mean Corpuscular HGB Conc 32.2 g/dl (32-36); Mean Corpuscular Hemoglobin 25.9 pg (26-34); Mean Corpuscular Volume 80.6 fl (80-100); Mean Platelet Volume 10.3 fl (7.4-10.4); Monocytes Absolute Auto 0.7 K/mm3 (0.1-0.6); Monocytes Percent Auto 5.6 % (2.6-8.5); Neutrophils Absolute Auto 7.6 K/mm3 (1.3-6.7); Platelet Count Result 331 k/mm3 (150-375); Red Cell Distribution Width 13.4 % (11.5-14.5); White Blood Count 12.4 K/mm3 (4.5-10.0)
[2022-10-20 20:30] VITALS: BP 130/74; PULSE 90; RESP 19; O2SAT 96
[2022-10-20 20:32] VITALS: BP 100/66; BP 100/67; BP 109/75; PULSE 94; PULSE 98; PULSE 99
[2022-10-20] MEDS: SODIUM CHLORIDE 0.9% IV 1,000 ML 999 ML IV CONT (20:38)
[2022-10-20 20:48] LABS: Alanine Aminotransferase 23 U/L (6-35); Albumin Level 3.7 g/dL (3.5-5.1); Alkaline Phosphatase 84 U/L (38-126); Anion Gap 5 mmol/L (8-16); Aspartate Amino Transferase 25 U/L (14-36); Bilirubin,Total 0.2 mg/dL (0.2-1.3); Blood Urea Nitrogen 9 mg/dL (7-17); Calcium 7.8 mg/dL (8.4-10.2); Carbon Dioxide 25 mmol/L (22-30); Chloride 102 mmol/L (98-107); Estimated CRCL calculation 156 ml/min; Estimated Glomerular Filt Rate > 60; Glucose 146 mg/dL (65-110); Potassium 3.8 mmol/L (3.4-5.0); Sodium 132 mmol/L (137-145)
--- NOTE | 2022-10-20 21:00 | ECG_ITS ---
Measurements Intervals [place] Rate: 90 P: 17 HI: 158 QRS: 43 QRSD: 84 T: 22 QT: 344 QTc: 422 Interpretive Statements SINUS RHYTHM BASELINE ARTIFACT- II, III, AVF NORMAL ECG NO PREVIOUS ECG AVAILABLE FOR COMPARISON Electronically Signed On 10-21-2022 7:54:38 PLATEMAKER by Jeremy Yarbrough D.O.
[2022-10-20 21:30] VITALS: BP 101/78; PULSE 80; RESP 19; O2SAT 97
[2022-10-20 21:31] LABS: Troponin I < 0.012 ng/mL (0.000-0.034)
[2022-10-20 22:20] VITALS: BP 100/69; PULSE 80; RESP 19; O2SAT 99
[2022-10-20 22:24] VITALS: BP 100/66; PULSE 97; RESP 19; O2SAT 97
== END 2022-10-20 22:20 | disposition home or self-care (01) ==
PROVIDERS: Emergency Provider Nurse Practitioner Family; PCP Physician Assistant
DX: R55 Syncope and collapse (principal)
CPT/HCPCS: 36415; 80053; 84484; 85025; 93005; 96360; 96361; 99284; J7030

== ENCOUNTER 2023-08-31 14:22 | Observation (INO) | payer OTHER, SELFPAY ==
[2023-08-31] VITALS (8 sets, daily range): BP systolic 95–117; BP diastolic 52–71; PULSE 87–95
--- NOTE | ~2023-08-31 | US_ITS ---
EXAMINATION: US OB BPP wo non-stress DATE: 08/31/2023 17:22 INDICATION: Decelerations. Third trimester. TECHNIQUE: Real-time pelvic ultrasound was performed. COMPARISON: None. FINDINGS: There is a single living fetus in breech presentation. The placenta is left anterior, far from the c ervix. heart rate is 142 beats per minute (bpm). The amniotic fluid index is 27.8 cm, which is high (95th percentile is 24.9 cm) Biophysical profile performed by the technologist: breathing (30 sec sustained breathing in 30 minutes): 2 out of 2 movement (3 gross body movements in 30 minutes): 2 out of 2 tone (one episode of joezlll-tvmgrjsbj-xwvjhyz limb movement): 2 out of 2 Amniotic fluid pocket (2 cm): 2 out of 2 Total score: 8 out of 8 IMPRESSION: 1. Single living fetus in breech presentation. 2. Biophysical profile 8 out of 8. 3. Polyhydramnios. Reviewed, dictated and finalized at location A. [place] MARKETING COORDINATOR
--- NOTE | 2023-08-31 16:56 | OBADM ---
This patient, Criss Wilson, admitted to the OB room OB Post 115 for observation. Patient/family oriented to hospital policies and general routines including ID bracelet, bed and alarms, visiting hours, pain management, procedures, bathroom and other care routines, personal items, smoking policy, room service/diet, and visiting hours. Patient/Family are encouraged to report perceived risks to care and to ask questions if they do not understand what they are told or what they should do.
--- NOTE | 2023-09-01 17:43 | PM.OBTRLD ---
OB - Triage/Final Diagnosis Visit Information Comments/Additional reasons for admission: I have assessed the risk for this patient, Criss Jordi BooSteve, and determined that she would benefit from observation care. Final Diagnosis (1) Variable deceleration: Status: Acute
== END 2023-08-31 17:40 | disposition home or self-care (01) ==
LOC: ANHOBPP 14:31
PROVIDERS: Admitting Provider Obstetrics & Gynecology; PCP Physician Assistant; Visit Provider Obstetrics & Gynecology
DX: O36.8330 Maternal care for abnormalities of the fetal heart rate or rhythm, third trimester, not applicable or unspecified (principal); Z3A.36 36 weeks gestation of pregnancy
CPT/HCPCS: 76819; G0378; G0379

== ENCOUNTER 2023-09-21 00:16 | Inpatient (IN) | payer OTHER, SELFPAY ==
[2023-09-21] VITALS (223 sets, daily range): BP systolic 86–147; BP diastolic 42–85; PULSE 70–122; RESP 16–18; TEMP 36.3–36.9; O2SAT 84–100; BMI 44.0
[2023-09-21 01:17] LABS: Basophils Percent Auto 0.3 % (0.2-1.2); Eosinophils Percent Auto 0.3 % (0-4.4); Hematocrit 31.9 % (37.0-47.0); Immature Granulocyte Absolute 0.02 K/mm3 (0.00-0.031); Immature Granulocyte Percent A 0.2 % (0-0.5); Lymphocytes Absolute Auto 2.73 K/mm3 (0.9-3.2); Lymphocytes Percent Auto 26.4 % (18.3-44.2); Mean Corpuscular HGB Conc 31.3 g/dl (32-36); Mean Corpuscular Hemoglobin 24.2 pg (26-34); Mean Corpuscular Volume 77.2 fl (80-100); Mean Platelet Volume 11.4 fl (7.4-10.4); Monocytes Absolute Auto 0.8 K/mm3 (0.1-0.6); Monocytes Percent Auto 7.9 % (2.6-8.5); Neutrophils Absolute Auto 6.7 K/mm3 (1.3-6.7); Neutrophils Percent Auto 64.9 % (45.5-73.1); Platelet Count Result 265 k/mm3 (150-375); Red Blood Count 4.13 M/mm3 (4.2-5.4); White Blood Count 10.3 K/mm3 (4.5-10.0)
--- NOTE | 2023-09-21 01:25 | LDADM ---
This patient, Criss Wilson, was admitted to Labor/Delivery/Recovery 104 on 09/21/23 at 00:16. Plans for labor, pain management and were discussed with patient. Patient/family oriented to hospital policies and general routines including ID bracelet, bed and alarms, visiting hours, pain management, procedures, bathroom and other care routines, personal items, smoking policy, room service/diet and guest tray routines, infant security routines, and visiting hours. Patient/Family are encouraged to report perceived risks to care and to ask questions if they do not understand what they are told or what they should do. See OBIX for further documentation.
[2023-09-21] MEDS: miSOPROStol 25 MCG TABLET 50 MCG PO (01:35)
[2023-09-21] MEDS: LACTATED RINGERS 1,000 ML 125 ML IV CONT ×2 (01:39→08:57)
[2023-09-21] MEDS: AMPICILLIN 2 GM/NS 100 ML 2 GM/100 ML BAG IVPB (01:40)
--- NOTE | 2023-09-21 06:23 | WPDANESEPPF ---
Anes - Initial Pre Proc Eval Procedure: Labor epidural Date/Time: 09/21/23 06:23 Surgeon: Mohamud Menjivar MD Pre Op Diagnosis: Labor pain Pre Op Diagnosis: IOL Patient Data Age: 23 Gender: F Height: 1.63 m Weight: 116.4 kg Last Vital Signs Temp 36.6 C 09/21/23 03:59 Pulse 80 09/21/23 03:31 BP 120/70 09/21/23 03:31 Pulse Ox 100 09/21/23 06:22 O2 Del Method Room Air 09/21/23 01:42 Allergies Allergy/AdvReac Type Severity Reaction Status Date / Time orange Allergy Hives Verified 09/21/23 04:09 Home Medications Medication Instructions Recorded Confirmed Type vit no.95-ferrous 1 tablet PO DAILY 04/17/21 09/21/23 History fumarate 28 mg-folic acid 800 mcg tablet () aspirin 81 mg capsule 81 mg PO DAILY 09/03/23 09/03/23 History Laboratory Tests 09/21/23 00:34 WBC 10.3 H K/mm3 (4.5-10.0) RBC 4.13 L M/mm3 (4.2-5.4) Hgb 10.0 L D g/dL (12.0-15.0) Hct 31.9 L % (37.0-47.0) MCV 77.2 L fl (80-100) MCH 24.2 L pg (26-34) MCHC 31.3 L g/dl (32-36) RDW 14.0 % (11.5-14.5) Plt Count 265 k/mm3 (150-375) MPV 11.4 H fl (7.4-10.4) Immature Gran % (Auto) 0.2 % (0-0.5) Neut % (Auto) 64.9 % (45.5-73.1) Lymph % (Auto) 26.4 % (18.3-44.2) Ness % (Auto) 7.9 % (2.6-8.5) Eos % (Auto) 0.3 % (0-4.4) Baso % (Auto) 0.3 % (0.2-1.2) Lymph # (Auto) 2.73 K/mm3 (0.9-3.2) Ness # (Auto) 0.8 H K/mm3 (0.1-0.6) Eos # (Auto) 0.0 K/mm3 (0-0.3) Baso # (Auto) 0.0 K/mm3 (0.0-0.1) Abs Immat Gran (auto) 0.02 K/mm3 (0.00-0.031) Absolute Neuts (auto) 6.7 K/mm3 (1.3-6.7) Absolute Nucleated RBC 0.0 K/mm3 (0.0-0.012) Nucleated RBC % 0.0 % (0.0-0.2) RPR Pending Blood Type O Positive Antibody Screen Negative Patient hx anesthesia problems: none Family hx anesthesia problems: none Results Review: All pre-operative results and documents have been reviewed as part of the pre-operative evaluation. [facility] Surgical History Surgical History No pertinent past surgical history Family History Family History Mother Diabetes mellitus Sibling Asthma Grandparent Diabetes mellitus Social History Social History Smoking status: Never smoker Alcohol intake: never Substance use: never Substance use type: does not use Do You Feel Safe in your Home?: Yes Lack of Transportation: No Lack of Food: Never True Current Housing: I Have Housing Concerned About Future Housing: No Difficulty Paying Gas/Electric Bills: No Difficulty Paying for Meds: No Currently Unemployed: No Education: High School Diploma/GED Difficulty w/ Childcare or Family Care: No Living arrangements: with family Gender identity (if verbalized by the patient): Female Spiritual care concerns: No Anes - Eval Final PreProcedure Day of Procedure 09/21/23 06:23 Patient weight: morbidly obese Heart: regular rate and rhythm Neurological: alert and oriented ASA classification: III Anesthetic plan: proceed Anesthesia type and monitoring: regional epidural Results Review: All pre-operative results and documents have been reviewed as part of the pre-operative evaluation. Informed Consent: The patient's anesthetic plan and its attendant risks and benefits were discussed with the patient/family/POA. Questions were solicited and answers provided to the satisfaction of the patient/family/POA.
[2023-09-21] MEDS: AMPICILLIN 1 GM/NS 50 ML 1 GM/50 ML BAG IVPB ×3 (06:29→14:18)
--- NOTE | 2023-09-21 08:59 | PM.IMHP ---
H&P: HPI History of Present Illness Date/Time: 09/21/23 08:59 Chief Complaint: Elective induction of labor Narrative: Patient is a who presents for elective induction of labor. has been complicated by polyhydramnios and maternal obesity. testing has been reassuring. Asymptomatic today. Review of Systems Review of Systems: All systems reviewed & are unremarkable except as noted in HPI and below PMFSH Surgical History Surgical History No pertinent past surgical history Family History Family History Mother Diabetes mellitus Sibling Asthma Grandparent Diabetes mellitus Social History Social History Smoking status: Never smoker Alcohol intake: never Substance use: never Substance use type: does not use Do You Feel Safe in your Home?: Yes Lack of Transportation: No Lack of Food: Never True Current Housing: I Have Housing Concerned About Future Housing: No Difficulty Paying Gas/Electric Bills: No Difficulty Paying for Meds: No Currently Unemployed: No Education: High School Diploma/GED Difficulty w/ Childcare or Family Care: No Living arrangements: with family Gender identity (if verbalized by the patient): Female Spiritual care concerns: No Meds Home Medications and Allergies Home Medications Medication Instructions Recorded Confirmed Type vit no.95-ferrous 1 tablet PO DAILY 04/17/21 09/21/23 History fumarate 28 mg-folic acid 800 mcg tablet () aspirin 81 mg capsule 81 mg PO DAILY 09/03/23 09/03/23 History Allergies Allergy/AdvReac Type Severity Reaction Status Date / Time orange Allergy Hives Verified 09/21/23 04:09 Vital Signs Vital Signs - 24 hr 09/21/23 01:10 09/21/23 01:12 09/21/23 01:15 Temperature Pulse Rate 92 Blood Pressure 95/60 L Pulse Oximetry 98 99 Oxygen Delivery 09/21/23 01:24 09/21/23 01:31 09/21/23 01:36 Temperature Pulse Rate 85 Blood Pressure 95/58 L Pulse Oximetry 98 99 Oxygen Delivery 09/21/23 01:41 09/21/23 01:46 09/21/23 01:51 Temperature Pulse Rate Blood Pressure Pulse Oximetry 100 99 100 Oxygen Delivery 09/21/23 01:56 09/21/23 02:03 09/21/23 02:08 Temperature Pulse Rate Blood Pressure Pulse Oximetry 100 100 100 Oxygen Delivery 09/21/23 02:13 09/21/23 02:18 09/21/23 02:23 Temperature Pulse Rate Blood Pressure Pulse Oximetry 100 99 100 Oxygen Delivery 09/21/23 02:28 09/21/23 02:33 09/21/23 02:35 Temperature 97.3 F L Pulse Rate 78 Blood Pressure 98/42 L Pulse Oximetry 100 100 Oxygen Delivery 09/21/23 02:38 09/21/23 02:47 09/21/23 02:52 Temperature Pulse Rate Blood Pressure Pulse Oximetry 100 100 100 Oxygen Delivery 09/21/23 02:57 09/21/23 03:01 09/21/23 03:02 Temperature Pulse Rate 77 Blood Pressure 107/66 Pulse Oximetry 100 99 Oxygen Delivery 09/21/23 03:07 09/21/23 03:12 09/21/23 03:17 Temperature Pulse Rate Blood Pressure Pulse Oximetry 100 99 100 Oxygen Delivery 09/21/23 03:22 09/21/23 03:27 09/21/23 03:31 Temperature Pulse Rate 80 Blood Pressure 120/70 Pulse Oximetry 100 100 Oxygen Delivery 09/21/23 03:32 09/21/23 03:37 09/21/23 03:42 Temperature Pulse Rate Blood Pressure Pulse Oximetry 100 100 100 Oxygen Delivery 09/21/23 03:47 09/21/23 03:52 09/21/23 03:57 Temperature Pulse Rate Blood Pressure Pulse Oximetry 100 100 100 Oxygen Delivery 09/21/23 03:59 09/21/23 04:02 09/21/23 04:07 Temperature 98 F Pulse Rate Blood Pressure Pulse Oximetry 100 98 Oxygen Delivery 09/21/23 04:07 09/21/23 04:17 09/21/23 04:22 Temperature Pulse Rate Blood Pressure Pulse Oximetr
--- NOTE | 2023-09-21 12:50 | PM.OBPNLAB ---
Pain Control Date/time seen: 09/21/23 12:50 Comments: Doing well, pain controlled with epidural. Difficult to monitor baby, FSE placed. Pelvic Exam Dilation (cm): 7 Effacement (%): 90 station: -2 Amniotic membrane status: Ruptured Comments: asynclitic to maternal left Contractions Monitor mode: Internal Assessment and Plan Comments: Continue pitocin induction, ok for amnioinfusion for variable decels. Will do position changes
[2023-09-21] MEDS: SODIUM CHLORIDE 0.9% IV 300 ML 600 ML I-UTERINE (12:53)
[2023-09-21] MEDS: SODIUM CHLORIDE 0.9% IV 1,000 ML 150 ML I-UTERINE (13:35)
[2023-09-21 14:36] LABS: Rapid Plasma Reagin Non-Reactive (NonReactive)
--- NOTE | 2023-09-21 15:02 | PM.OBPRVD ---
OB - Vaginal Delivery Note Procedure Delivery date: 09/21/23 Events: Elective Induction of Labor Induction method: Per Misoprostol Protocol Delivery augmentation: Rupture of Membranes and Pitocin Delivery monitor: Internal FHT and Internal Uterine Route of delivery: Episiotomy description: None Laceration Description: None Specimen: Yes (placenta for pathology) Quantitative Blood Loss (ml): 50 Anesthesia type: Epidural Disposition: Floor Complications: No immediate complications [place] Baby Weeks of gestation at delivery: 39 presentation: vertex position: Left Occiput Anterior Placenta delivery description: Spontaneous Cord Vessel Description: 3 Vessels
[2023-09-21] MEDS: OXYTOCIN 30 UNITS/NS 500 ML 30 UNITS/500 ML BAG IV CONT (15:28)
[2023-09-22 00:20] VITALS: BP 112/71; PULSE 88; RESP 18; TEMP 36.7; O2SAT 99
[2023-09-22 06:05] LABS: Hemoglobin 9.7 g/dL (12.0-15.0)
[2023-09-22 07:50] VITALS: BP 105/71; PULSE 88; RESP 16; TEMP 36.3; O2SAT 100
[2023-09-22 08:00] VITALS: PULSE 88; RESP 16; O2SAT 100
--- NOTE | 2023-09-22 08:21 | WPDANLDPN2 ---
Anes-Prog Note L&D Date/Time: 09/22/23 08:21 Neuro status: Neuro function grossly intact. Cardiovascular status: normal Respiratory status: normal Airway patency: baseline Mental status: baseline Post-Op hydration status: normal Vital Signs: Last Vital Signs Temp 36.7 C 09/22/23 00:20 Pulse 88 09/22/23 00:20 Resp 18 09/22/23 00:20 BP 112/71 09/22/23 00:20 Pulse Ox 99 09/22/23 00:20 O2 Del Method Room Air 09/21/23 17:05 Pain score (VAS): 0 Post-procedural complaints: none Patient feedback: Patient satisfied with anesthetic care.
[2023-09-22] MEDS: MULTIVIT/MIN/PREN/FOL AC/IRON TABLET 1 TAB PO (08:25)
[2023-09-22] MEDS: POLYSACCHARIDE IRON COMPLEX 150 MG CAPSULE PO (08:25)
[2023-09-22] MEDS: DOCUSATE SODIUM 100 MG CAPSULE PO (08:25)
[2023-09-22] MEDS: IBUPROFEN 600 MG TABLET (08:30)
--- NOTE | 2023-09-22 11:34 | P.PNOB_ITS ---
OB - PN: Subj Subjective Date/time seen: 09/22/23 11:34 Interval history: PPD#1 Desires discharge home today Pain well controlled Bleeding minimal OB - PN: Obj Data Labs 09/22/23 05:42 Labs: Laboratory Results - last 24 hr 09/21/23 09/22/23 00:34 05:42 Hgb 9.7 L Hct 32.0 L RPR Non-reactive OB - PN A/P Plan day: 1 Plan: routine care and discharge home Time Spent With Patient Time: Total time spent is greater than 50% in coordination of care (as documented) at patient's floor/unit and/or counseling patient: Review of Systems 2 Review of Systems: All systems reviewed & are unremarkable except as noted in HPI and below Exam Const: General: comfortable and no acute distress HENMT: Mouth: Yes moist mucous membranes Eyes: General: appearance normal, both eyes and all related structures Neck: Neck: supple Resp: Effort & Inspection: normal respiratory effort Cardio: Rate: regular rate Rhythm: regular rhythm GI: GI Palp: Yes Soft to palpation Skin: General skin exam: normal color Neuro: General: gait normal Motor exam (neuro): 5/5 motor strength present throughout Sensory Exam: normal sensation Extrem: General: normal to inspection Psych: Mental Status: mental status grossly normal
--- NOTE | 2023-09-22 11:36 | PM.OBDSVD ---
DS: Admitting Diagnosis Discharge Date 09/22/23 Admitting Diagnosis elective induction of labor DS: Discharge Diagnosis Discharge Diagnosis (1) (spontaneous vaginal delivery): Code(s): O80 - Encounter for full-term uncomplicated delivery Status: Acute OB - DS: Summary OB Procedures : None OB Procedures Intrapartum: Spontaneous Vag Delivery OB Procedures: : None Peripartum Data Laceration Description: None Episiotomy description: None Time Spent with Patient Time attestation: Total time spent providing and/or coordinating discharge services: DS: Data Data Completed and Pending Pending studies at discharge: Pending at discharge 09/21/23 15:41 Surgical [PTH] Routine Labs on day of discharge: Labs from last 24 hours 09/22/23 09/21/23 05:42 00:34 Hgb 9.7 L Hct 32.0 L RPR Non-reactive Discharge Plan Discharge Attending physician on discharge: Mohamud Menjivar Discharging Clinician: Mohamud Menjivar Patient Disposition: Home, Self-Care Activity: may shower, as tolerated and pelvic rest Diet: as tolerated Patient Instructions: Antibiotic Form Stand Alone Forms: General Discharge Information Follow-up/Referrals: Mohamud Menjivar MD [Physician] - 4 Weeks Discharge Medications: Continued PNV cmb#95-ferrous fumarate-FA [] 28 mg iron- 800 mcg Tablet 1 tablet PO DAILY Discontinued aspirin 81 mg Capsule 81 mg PO DAILY Date of admission: 09/21/23 00:16 Primary Care Provider: Shemar,Gopal Ng Admitting Provider: Mohamud Menjivar Attending physician on admission: Mohamud Menjivar Condition: Stable
[2023-09-22 13:01] VITALS: BP 113/70; PULSE 83; RESP 18; TEMP 36.8; O2SAT 100
--- NOTE | 2023-09-22 15:15 | PC.NURSE ---
1030-Patient was given the opportunity to view the discharge video Mother & Baby Care, The First Two Weeks and to ask questions. Patient declined viewing the video and has been given the mother/baby guide for home reference.
--- NOTE | 2023-09-22 15:46 | PC.NURSE ---
1210 - Sausage Inspector to see parents. [id number] Introductions were made, then consulted with patient to assess needs related to . Discussed with mother her?plans to feed?her , the?experience so far and parents say latched well at first with RN assistance downstairs, then wouldn't latch upstairs well and was in the nursery for quite a while. Mother has been using her own personal pump that is battery operated designed for temporary pumping and encouraged parents to use their Spectra to build and maintain the milk supply during the separation with infant. Resources provided for inpatient and outpatient services with the feeding sheet, mom/baby guide and name written on the communication board. Parents voiced understanding of information, shared resources using the mom/baby guide, visual handouts, QR code and reaching out to the LC at [facility].
== END 2023-09-22 15:12 | disposition home or self-care (01) | DRG 560 ==
LOC: ANHLDR 00:21 → ANHOB2 17:23
PROVIDERS: Admitting Provider Obstetrics & Gynecology; PCP Physician Assistant; Visit Provider Obstetrics & Gynecology
DX: O99.214 Obesity complicating childbirth (principal); O99.824 Streptococcus B carrier state complicating childbirth; O62.3 Precipitate labor; Z3A.39 39 weeks gestation of pregnancy; Z37.0 Single live birth
CPT/HCPCS: 36415; 85014; 85018; 85025; 86592; 86850; 86900; 86901; 88307; A9270; J0290; J2590; J2795; J7030; J7120